=== PATIENT | male | born 1975 | race African-American/Black ===

== ENCOUNTER 2022-02-03 12:45 | Emergency (ER) | payer OTHER, SELFPAY ==
[2022-02-03 12:59] VITALS: BP 130/100; PULSE 116; RESP 16; TEMP 37.2; O2SAT 98
[2022-02-03] MEDS: ONDANSETRON HCL ODT 4 MG TABLET SUBLINGUAL (13:44)
--- NOTE | 2022-02-03 14:06 | ED.NAVMDI ---
HPI - Nausea/Vomiting/Diarrhea General Chief complaint: Nausea/Vomiting/Diarrhea Stated complaint: abd pain/vomiting Time Seen by Provider: 02/03/22 14:06 Source: patient and RN notes reviewed Mode of arrival: ambulatory Limitations: no limitations History of Present Illness HPI Narrative: 46-year-old male presenting for complaint nausea, vomiting, diarrhea, onset today. He denies sick contacts. He denies abdominal pain, shortness of breath, chest pain or heart racing, fevers or chills. No other household members with similar symptoms. Last meal last night was fried chicken. Attempted liquids today. Has had 4-5 episodes of vomiting and diarrhea today. He states he experienced this about 2-3 weeks ago which resolved on its own. Related Data Home Medications Medication Instructions Recorded Confirmed amlodipine 5 mg tablet 5 mg DAILY 02/03/22 02/03/22 atorvastatin 40 mg tablet 40 mg DAILY 02/03/22 02/03/22 dulaglutide 1.5 mg/0.5 mL 4 mg subcut DIRECTED 02/03/22 02/03/22 subcutaneous pen injector (Trulicity) empagliflozin 10 mg tablet 10 mg DAILY 02/03/22 02/03/22 (Jardiance) lisinopril 20 mg tablet 20 mg DAILY 02/03/22 02/03/22 metformin 500 mg tablet 500 mg TID 02/03/22 02/03/22 Allergies Allergy/AdvReac Type Severity Reaction Status Date / Time No Known Allergies Allergy Verified 02/03/22 13:27 Review of Systems Review of Systems: CONSTITUTIONAL: Denies body aches, fever, chills ENT: Denies rhinorrhea, congestion CARDIOVASCULAR: Denies chest pain, palpitations, or edema. RESPIRATORY: Denies cough or dyspnea. GASTROINTESTINAL: Endorses nausea, vomiting, diarrhea. Denies abdominal pain,hematochezia, melena, hematemesis GENITOURINARY: Denies dysuria, hematuria, or CVA tenderness. SKIN: Denies rash, itching, or wounds. MUSCULOSKELETAL: Denies back pain, joint pain, or myalgia. NEUROLOGIC: Denies headache, numbness, tingling, or weakness. All systems reviewed & are unremarkable except as noted in HPI and below PMFSH Comments At time of signature, I have reviewed and agree with nursing past medical, surgical, social and family history unless otherwise noted. Please see nursing chart for further information. There is no relevant family history pertinent to the presenting complaint Exam Narrative: GENERAL: Ill-appearing, in no acute distress. EYES: EOMI. Conjunctivae normal. ENT: Mucous membranes pink and moist. CHEST: Clear to auscultation. HEART: Regular rate and rhythm. No murmur appreciated. Normal peripheral pulses. ABDOMEN: abd soft, nondistended, normal active bowel sounds. Nontender abdomen, No guarding, rebound tenderness, asymmetry EXTREMITIES: Normal range of motion. No edema. SKIN: Warm, dry, no rash. Capillary refill normal. Normal skin turgor. NEURO: No focal deficits. Alert and oriented x3. PSYCH: Normal affect. Course Course Emergency Course: Patient is aware of diagnosis, understands and agrees to treatment plan. Anticipatory guidance given. Patient agrees to follow-up as directed and is aware of reasons to seek care at the emergency department. Portions of this record may have been created with voice recognition software Level of Care: Express Care Visit Vital Signs Vital signs: Vital Signs Temperature 98.9 F 02/03/22 12:59 Pulse Rate 116 H 02/03/22 12:59 Respiratory Rate 16 02/03/22 12:59 Blood Pressure 130/100 H 02/03/22 12:59 Pulse Oximetry 98 02/03/22 12:59 Oxygen Delivery Room Air 02/03/22 12:59 Temperature 98.9 F 02/03/22 12:59 Pulse Rate 116 H 02/03/22 12:59 Respiratory Rate 16 02/03/22 12:59 Blood Pressure 130/100 H 02/03/22 12:59 Pulse Oximetry 98 02/03/22 12:59 Oxygen Delivery Room Air 02/03/22 12:59 MDM - Nausea/Vomiting/Diarrhea MDM Narrative Medical decision making narrative: Flu and covid negative. Advised supportive measures for symptoms and signs/symptoms to go to the ER. Pt is appropriate for outpt
== END 2022-02-03 14:26 | disposition home or self-care (01) ==
PROVIDERS: Emergency Provider Nurse Practitioner Family
DX: R11.2 Nausea with vomiting, unspecified (principal); R19.7 Diarrhea, unspecified; Z20.822 Contact with and (suspected) exposure to COVID-19
CPT/HCPCS: 87426; 87804; 99213; A9270; C9803; G0463

== ENCOUNTER 2022-03-09 13:49 | Emergency (ER) | payer OTHER, SELFPAY ==
[2022-03-09 14:22] VITALS: BP 157/111; PULSE 103; RESP 16; TEMP 36.5; O2SAT 97
[2022-03-09 16:17] VITALS: BP 154/108; PULSE 99; RESP 18; O2SAT 97
[2022-03-09 16:36] LABS: Basophils Percent Auto 0.1 % (0.2-1.2); Eosinophils Absolute Auto 0.2 K/mm3 (0-0.3); Eosinophils Percent Auto 2.2 % (0-4.4); Hematocrit 49.2 % (42.0-52.0); Hemoglobin 16.7 g/dL (14.0-18.0); Immature Granulocyte Absolute 0.03 K/mm3 (0.00-0.031); Immature Granulocyte Percent A 0.4 % (0-0.5); Lymphocytes Absolute Auto 2.15 K/mm3 (0.9-3.2); Lymphocytes Percent Auto 26.5 % (18.3-44.2); Mean Corpuscular HGB Conc 33.9 g/dl (32-36); Mean Corpuscular Hemoglobin 31.4 pg (26-34); Mean Corpuscular Volume 92.5 fl (80-100); Mean Platelet Volume 9.4 fl (7.4-10.4); Monocytes Absolute Auto 0.5 K/mm3 (0.1-0.6); Monocytes Percent Auto 6.7 % (2.6-8.5); Neutrophils Absolute Auto 5.2 K/mm3 (1.3-6.7); Neutrophils Percent Auto 64.1 % (45.5-73.1); Platelet Count Result 201 k/mm3 (150-375); Red Blood Count 5.32 M/mm3 (4.6-6.20); Red Cell Distribution Width 12.7 % (11.5-14.5); White Blood Count 8.1 K/mm3 (4.5-10.0)
[2022-03-09 18:05] LABS: Alanine Aminotransferase 24 U/L (6-50); Albumin Level 4.2 g/dL (3.5-5.1); Alkaline Phosphatase 102 U/L (38-126); Anion Gap 8 mmol/L (8-16); Aspartate Amino Transferase 21 U/L (17-59); Bilirubin,Total 0.7 mg/dL (0.2-1.3); Blood Urea Nitrogen 12 mg/dL (9-20); Calcium 8.7 mg/dL (8.4-10.2); Carbon Dioxide 27 mmol/L (22-30); Chloride 104 mmol/L (98-107); Estimated CRCL calculation 146 ml/min; Estimated Glomerular Filt Rate > 60; Glucose 129 mg/dL (65-110); Lipase 42 U/L (23-300); Potassium 3.3 mmol/L (3.4-5.0); Sodium 139 mmol/L (137-145)
[2022-03-09] MEDS: METOCLOPRAMIDE HCL INJ 10 MG/2 ML VIAL IV PUSH (18:07)
[2022-03-09] MEDS: SODIUM CHLORIDE 0.9% IV 1,000 ML 999 ML IV CONT (18:07)
--- NOTE | 2022-03-09 18:09 | ED.GENADULT ---
HPI - General Adult General Chief complaint: Nausea/Vomiting/Diarrhea Stated complaint: vomiting/diarrhea/rotten egg burps Time Seen by Provider: 03/09/22 17:39 History of Present Illness HPI narrative: 46-year-old male history of diabetes on metformin and Jardiance presenting to the emergency department for evaluation of persistent nausea vomiting diarrhea. Patient states he started these medications in January and has been having intermittent symptoms since then. Patient states there were couple times that he stopped taking his meds and felt improved after a few days. Patient does have follow-up scheduled with his primary care physician. Patient has not taken his medications for the last few days but continues to have worsening nausea and vomiting and diarrhea. Patient was having associated abdominal cramping but states he is not currently having abdominal cramping. Related Data Home Medications Medication Instructions Recorded Confirmed amlodipine 5 mg tablet 5 mg DAILY 02/03/22 02/03/22 atorvastatin 40 mg tablet 40 mg DAILY 02/03/22 02/03/22 dulaglutide 1.5 mg/0.5 mL 4 mg subcut DIRECTED 02/03/22 02/03/22 subcutaneous pen injector (Trulicity) empagliflozin 10 mg tablet 10 mg DAILY 02/03/22 02/03/22 (Jardiance) lisinopril 20 mg tablet 20 mg DAILY 02/03/22 02/03/22 metformin 500 mg tablet 500 mg TID 02/03/22 02/03/22 Allergies Allergy/AdvReac Type Severity Reaction Status Date / Time No Known Allergies Allergy Verified 03/09/22 17:39 Review of Systems Review of Systems: CONSTITUTIONAL: Denies fever, chills, or sweats. EYES: Denies visual changes, redness, or discharge. ENT: Denies rhinorrhea, congestion, sore throat, or otalgia. CARDIOVASCULAR: Denies chest pain, palpitations, or edema. RESPIRATORY: Denies cough or dyspnea. GASTROINTESTINAL: See HPI GENITOURINARY: Denies dysuria or hematuria. SKIN: Denies rash or itching. MUSCULOSKELETAL: Denies back pain, joint pain, or myalgia. NEUROLOGIC: Denies headache, numbness, or weakness. Exam Narrative: APPEARANCE: Well appearing, no pain, no distress, well-nourished. HEAD: normocephalic, atraumatic. EYES: PERRLA/EOMI, conjunctivae clear. NOSE: Normal no drainage NECK: Supple. No adenopathy, no masses. RESPIRATORY: Airway patent, respirations nonlabored. Clear to auscultation bilaterally, no rales, rhonchi, wheezing. CARDIOVASCULAR: Regular rate and rhythm without murmurs rubs or gallops. ABDOMINAL: Soft, nontender, nondistended, normal bowel sounds MUSCULOSKELETAL: Moves all extremities. Strength/ROM intact, No edema, No calf tenderness. NEURO: Alert. Cranial nerves II through XII intact. Grossly intact SKIN: Warm, dry. Normal Color Course Course Emergency Course: Patient does feel improved with treatment. Patient was afebrile with no leukocytosis. Patient's electrolytes are within normal limits. Patient had negative lipase and transaminases. Patient's UA was negative. Patient states he does feel improved with rehydration and with the antinausea medication. Patient does have Zofran at home but patient will be prescribed additional Reglan. Patient reports he does have follow-up scheduled with his primary care physician. Patient was encouraged to follow a clear liquid diet for the next few days until improved. Suspect adverse medication reaction for the etiology of the patient's symptoms. Less likely differential diagnosis includes cholecystitis, appendicitis. Patient had a soft benign nonsurgical abdomen on exam. Vital Signs Vital signs: Vital Signs Temperature 97.7 F 03/09/22 14:22 Pulse Rate 103 H 03/09/22 14:22 Respiratory Rate 16 03/09/22 14:22 Blood Pressure 157/111 H 03/09/22 14:22 Pulse Oximetry 97 03/09/22 14:22 Temperature 97.7 F 03/09/22 14:22 Pulse Rate 99 03/09/22 19:15 Respiratory Rate 14 03/09/22 19:15 Blood Pressure 155/100 H 03/09/22 19:15 Pulse Oximetry 97 03/09/22 19:15 Medical
[2022-03-09 18:32] VITALS: BP 152/99; PULSE 92; RESP 17; O2SAT 99
[2022-03-09 19:15] VITALS: BP 155/100; PULSE 99; RESP 14; O2SAT 97
[2022-03-09 19:46] LABS: Add Urine Microscopic? YES; Appearance Urine Clear (Clear); Bilirubin Urine Negative (Negative); Blood Urine 1+ (Negative); Color Urine Yellow (Yellow); Glucose Urine UA Negative (Negative); Ketones Urine Negative (Negative); Leukocyte Esterase Ur Negative LEU/UL (Negative); Nitrate Urine Negative (Negative); Protein Urine 1+ mg/dL (Negative); Specific Grav Ur 1.025 (1.001-1.035); Urobilinogen Urine 0.2 mg/dL (<2.0)
[2022-03-09 19:55] LABS: Mucus Urine Rare /lpf; Squamous Epithelial Cell Urine Rare /hpf (Few); WBC Urine 0-3 /hpf
== END 2022-03-09 20:30 | disposition home or self-care (01) ==
PROVIDERS: Emergency Provider Emergency Medicine
DX: K52.9 Noninfective gastroenteritis and colitis, unspecified (principal); Z79.84 Long term (current) use of oral hypoglycemic drugs; Z79.899 Other long term (current) drug therapy
CPT/HCPCS: 36415; 80053; 81001; 83690; 85025; 96361; 96374; 99284; J2765; J7030

== ENCOUNTER 2024-12-15 14:23 | Emergency (ER) | payer OTHER, SELFPAY ==
[2024-12-15 14:31] VITALS: BP 159/107; PULSE 101; RESP 18; TEMP 36.6; O2SAT 99
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
== END 2024-12-15 15:15 | disposition home or self-care (01) ==
PROVIDERS: Emergency Provider Registered Nurse
DX: K04.7 Periapical abscess without sinus (principal); K02.9 Dental caries, unspecified; S02.5XXA Fracture of tooth (traumatic), initial encounter for closed fracture; X58.XXXA Exposure to other specified factors, initial encounter; E11.9 Type 2 diabetes mellitus without complications; I10 Essential (primary) hypertension; Z86.73 Personal history of transient ischemic attack (TIA), and cerebral infarction without residual deficits; F17.290 Nicotine dependence, other tobacco product, uncomplicated
CPT/HCPCS: 99213; G0463